=== PATIENT | female | born 1960 | race Caucasian/White ===

== ENCOUNTER → 2017-07-07 17:12 | Outpatient (CLI) | payer MEDICAID ==
[~2017-07-07 17:12] MED LIST: CALCIUM OR; D3 OR; HYDROCODONE-APA1 TAB PO; KLONOPIN1 MG PO; PRILOSEC20 MG PO; ROBAXIN-750750 MG PO; SILVADENE20 GM TP; ZINC OR; ZYRTEC10 MG PO
== END | disposition home or self-care (01) ==
LOC: D.MAMMO 05-29 16:00
DX: Z12.31 Encounter for screening mammogram for malignant neoplasm of breast (principal)

== ENCOUNTER → 2018-07-29 13:32 | Outpatient (CLI) | payer OTHER | END | disposition home or self-care (01) | LOC: D.LABREF 13:32 | DX: J42 Unspecified chronic bronchitis (principal) ==

== ENCOUNTER → 2018-09-03 08:35 | Outpatient (CLI) | payer OTHER ==
[2018-09-04 08:16] LABS: IMMUNOGLOBULIN A 165 mg/dL (87-352)
[2018-09-06 19:09] LABS: IMMUNOGLOBULIN E 102 IU/mL (0-100)
[2018-09-08 15:23] LABS: IGG SUBCLASS 1 525 mg/dL (248-810); IGG SUBCLASS 2 150 mg/dL (130-555); IGG SUBCLASS 3 59 mg/dL (15-102); IGG SUBCLASS 4 8 mg/dL (2-96); IMMUNOGLOBULIN G 695 mg/dL (700-1600)
== END | disposition home or self-care (01) ==
LOC: D.RT 08:35
PROVIDERS: Internal Medicine Pulmonary Disease
DX: J42 Unspecified chronic bronchitis (principal)

== ENCOUNTER 2018-09-17 08:00 | Outpatient (CLI) | payer OTHER | END 2018-09-17 09:00 | disposition home or self-care (01) | LOC: D.MAMMO 08:00 | DX: Z12.31 Encounter for screening mammogram for malignant neoplasm of breast (principal) ==

== ENCOUNTER → 2018-11-08 08:56 | Outpatient (CLI) | payer OTHER | END | disposition home or self-care (01) | LOC: D.CT 08:56 | DX: J32.9 Chronic sinusitis, unspecified (principal) ==

== ENCOUNTER 2019-11-01 11:00 | Outpatient (CLI) | payer OTHER | END 2019-11-01 11:30 | disposition home or self-care (01) | LOC: D.MAMMO 11:00 | PROVIDERS: ATTEND Family Medicine | DX: Z12.31 Encounter for screening mammogram for malignant neoplasm of breast (principal) ==